=== PATIENT | female | born 1995 | race Caucasian/White ===

== ENCOUNTER 2018-06-06 14:24 | Emergency (ER) | END 2018-06-06 17:24 | disposition left against medical advice (07) ==

== ENCOUNTER 2018-09-21 17:52 | Emergency (ER) | payer OTHER ==
[~2018-09-21] VITALS: Ht 152.4 cm; Wt 59.5 kg
[2018-09-21 18:17] VITALS: Ht 152.4 cm; Wt 59.5 kg
[2018-09-21] MEDS ORDERED: morphine 4 MG/ML VIAL IV STA (21:17)
[2018-09-21] MEDS ORDERED: SOD CHLORIDE 0.9% 1,000 ML IV STA (21:17)
[2018-09-21] MEDS ORDERED: ONDANSETRON 4 MG INJ IV STA ×2 (21:17→23:40)
--- NOTE | 2018-09-21 21:22 | ERD ---
ER Documentation Chief Complaint Chief Complaint Complains of abdominal and flank pain x 3 days HPI 21-year-old female presents with right upper quadrant abdominal pain that she has had since last night. No nausea vomiting or diarrhea. No fever. Pain is worse after eating. Has not tried any medications for this. No dysuria hem aturia frequency. ROS All systems reviewed and are negative except as per history of present illness. Allergies Allergies: Coded Allergies: No Known Allergy (Unverified , 06/06/18) FmHx Family History: No diabetes Physical Exam Vitals Vital Signs Date Temp Pulse Resp B/P (MAP) Pulse Ox O2 O2 Flow FiO2 Time Delivery Rate 09/21/18 98.3 68 20 131/75 100 18:17 (93) Physical Exam INITIAL VITAL SIGNS: Reviewed by me GENERAL: Awake, alert and oriented x 4, well appearing, nontoxic, speaking in full sentences. No acute distress HEAD: Atraumatic NECK: Supple. No masses. Full range of motion. No meningismus. No midline tenderness. EYES: EOMI. PERRL. RESPIRATORY: Clear to auscultation bilaterally. Symmetric chest wall rise. No wheezing or rales. No accessory muscle use. CV: Regular rate and rhythm. No murmurs, rubs, or gallops. ABDOMEN: Soft, non-distended. Nontender. Positive [place]. Negative McBurneys point tenderness. No CVA tenderness bilaterally. No guarding. No rebound. Result Diagram: 09/21/18212909/21/182129 Results 24 hrs Laboratory Tests Test 09/21/18 21:30 09/21/18 22:36 White Blood Count 6.4 10^3/ul Red Blood Count 4.58 10^6/ul Hemoglobin 12.8 g/dl Hematocrit 39.5 % Mean Corpuscular Volume 86.2 fl Mean Corpuscular Hemoglobin 27.9 pg Mean Corpuscular Hemoglobin Concent 32.4 g/dl Red Cell Distribution Width 13.1 % Platelet Count 276 10^3/UL Mean Platelet Volume 11.4 fl Immature Granulocytes % 0.500 % Neutrophils % 63.2 % Lymphocytes % 27.2 % Monocytes % 7.4 % Eosinophils % 1.4 % Basophils % 0.3 % Nucleated Red Blood Cells % 0.0 /100WBC Immature Granulocytes # 0.030 10^3/ul Neutrophils # 4.0 10^3/ul Lymphocytes # 1.7 10^3/ul Monocytes # 0.5 10^3/ul Eosinophils # 0.1 10^3/ul Basophils # 0.0 10^3/ul Nucleated Red Blood Cells # 0.0 10^3/ul Sodium Level 142 mmol/L Potassium Level 4.2 mmol/L Chloride Level 106 mmol/L Carbon Dioxide Level 27 mmol/L Anion Gap 9 Blood Urea Nitrogen 11 mg/dl Creatinine 0.58 mg/dl Est Glomerular Filtrat Rate mL/min > 60 mL/min Glucose Level 64 mg/dl Calcium Level 9.2 mg/dl Total Bilirubin 0.2 mg/dl Direct Bilirubin 0.00 mg/dl Indirect Bilirubin 0.2 mg/dl Aspartate Amino Transf (AST/SGOT) 14 IU/L Alanine Aminotransferase (ALT/SGPT) 12 IU/L Alkaline Phosphatase 92 IU/L Total Protein 7.7 g/dl Albumin 4.2 g/dl Globulin 3.50 g/dl Albumin/Globulin Ratio 1.20 Lipase 46 U/L Urine Color STRAW Urine Clarity CLEAR Urine pH 6.0 Urine Specific [place] 1.009 Urine Ketones NEGATIVE mg/dL Urine Nitrite NEGATIVE mg/dL Urine Bilirubin NEGATIVE mg/dL Urine Urobilinogen NEGATIVE mg/dL Urine Leukocyte Esterase NEGATIVE Darian/ul Urine Microscopic RBC 10 /HPF Urine Microscopic WBC 2 /HPF Urine Hemoglobin 3+ mg/dL Urine Glucose NEGATIVE mg/dL Urine Total Protein NEGATIVE mg/dl Current Medications Medications Dose Sig/Cynthia Start Time Status Last (Trade) Ordered Route PRN Stop Time Admin Dose Reason Admin Sodium 1,000 ml @ Q1H STAT 09/21/18 DC 09/21/18 Chloride 1,000 mls/hr IV 21:17 21:46 09/21/18 22:16 Morphine 4 mg ONCE STAT 09/21/18 DC 09/21/18 Sulfate IV 21:17 21:46 (morphine) 09/21/18 21:19 Ondansetron 4 mg ONCE STAT 09/21/18 DC 09/21/18 HCl (Zofran IV 21:17 21:46 Inj) 09/21/18 21:19 1 mg ONCE STAT 09/21/18 DC Hydromorphone IV 23:40 HCl 09/21/18 23:41 (Dilaudid) Ondansetron 4 mg ONCE STAT 09/21/18 DC HCl (Zofran IV 23:40 Inj) 09/21/18 23:41 Procedures/MDM The differential diagnosis includes but is not limited to appendicitis, cholelithiasis, cholecystitis, pancreatitis, hepatitis, gastritis, peptic ulcer disease, bowel obstruction, diverticulitis, renal disease including stones, torsion, AAA, pyelonephritis, and others. No appendix tenderness but she does have a positive Rosenbaum sign. Abdominal labs and ultrasound ordered she was given morphine and Zofran for pain. Ultrasound shows mild hydronephrosis on the right side otherwise negative. Urine is without infection shows a little bit of blood however she does states she is on her period. Abdominal pain of unknown etiology. Patient given prescription for [place] and Zofran. Patient counseled regarding my diagnostic impression and care plan. Prior to discharge all questions answered. Pt agrees with treatment plan and understands strict return precautions. Pt is instructed to follow up with primary care provider within 24- 48 hours. Precautionary instructions provided including instructions to return to the ER if not improving or for any worsening or changing symptoms or concerns. Departure Diagnosis: Primary Impression: Abdominal pain Condition: Stable SHADI BUTT PA-C Sep 21, 2018 21:22
[2018-09-21] MEDS ORDERED: HYDROmorphONE 0.5 MG/0.5 ML SYG IV STA (23:40)
[2018-09-21] MEDS ORDERED: HYDR-4011 PO (23:51)
[2018-09-21] MEDS ORDERED: ONDA4TAB14 PO (23:51)
[2018-09-22 01:10] VITALS: BP 125/95; PULSE 52; RESP 18
== END 2018-09-22 01:12 | disposition home or self-care (01) ==
LOC: FTE 17:52
DX: R10.11 Right upper quadrant pain (principal)
CPT/HCPCS: 36415; 76705; 80053; 81001; 83690; 85025; 96374; 96375; 96376; J1170; J2270; J2405; J7030; Z7502